=== PATIENT | male | born 1945 | race Caucasian/White ===

== ENCOUNTER → 2018-04-10 11:41 | Outpatient (CLI) | payer MEDICARE, OTHER, SELFPAY | PROVIDERS: PCP Family Medicine; Visit Provider Urology | DX: R97.20 Elevated prostate specific antigen [PSA] (principal) | CPT/HCPCS: 36415; 84153 ==

== ENCOUNTER → 2018-12-09 09:36 | Outpatient (CLI) | payer MEDICARE, OTHER, SELFPAY | PROVIDERS: Family Provider Urology; Visit Provider Urology | DX: R97.20 Elevated prostate specific antigen [PSA] (principal) | CPT/HCPCS: 36415; 84153 ==

== ENCOUNTER → 2019-07-30 11:00 | Outpatient (CLI) | payer MEDICARE, OTHER, SELFPAY ==
[2019-07-30 11:34] LABS: Creatinine Urine Random 21.6 mg/dL
[2019-07-30 11:42] LABS: Microalbumi Creatinin Ratio Ur 27.7 ug/mg CR (<30); Microalbumin Urine Random < 0.6 mg/dL (0-1.6)
== END ==
PROVIDERS: Family Provider Student in an Organized Health Care Education/Training Program; PCP Student in an Organized Health Care Education/Training Program; Visit Provider Internal Medicine Endocrinology, Diabetes & Metabolism
DX: E10.8 Type 1 diabetes mellitus with unspecified complications (principal)
CPT/HCPCS: 82043; 82570

== ENCOUNTER → 2021-01-18 09:48 | Outpatient (CLI) | payer MEDICARE, SELFPAY ==
[2021-01-18 11:35] LABS: Prostate Specific Antigen 8.07 ng/mL (0.10-4.00)
== END ==
PROVIDERS: Family Provider Student in an Organized Health Care Education/Training Program; PCP Student in an Organized Health Care Education/Training Program; Referring Provider Urology; Visit Provider Urology
DX: C61 Malignant neoplasm of prostate (principal)
CPT/HCPCS: 36415; 84153

== ENCOUNTER → 2021-06-10 09:08 | Outpatient (CLI) | payer MEDICARE, SELFPAY ==
[2021-06-10 12:02] LABS: COVID19 -Nasal RAPID Negative (Negative)
== END ==
PROVIDERS: Family Provider Student in an Organized Health Care Education/Training Program; PCP Student in an Organized Health Care Education/Training Program; Visit Provider Student in an Organized Health Care Education/Training Program
DX: Z20.822 Contact with and (suspected) exposure to COVID-19 (principal); Z01.812 Encounter for preprocedural laboratory examination
CPT/HCPCS: 87635; C9803

== ENCOUNTER 2022-03-28 13:45 | Outpatient (RCR) | payer MEDICARE, SELFPAY ==
--- NOTE | 2022-01-10 12:00 | PT.OPPOC ---
Physical, Occupational & Speech Therapy At [facility] Current Diagnoses Malignant neoplasm of prostate (01/10/22) Continuous leakage (01/10/22) Visit Care Team Role Provider Type Cornelius Mcfarland MD Family Provider Physician Primary Care Provider Specialty: Internal Medicine Address: [address] [place] [address], [facility] [address], [address] Email: [email or web address] Octavio Monreal MD Attending Provider Non-Staff Referring Provider Specialty: Medical Address: [address] [place] [address], [id number] Email: Plan Of Care PT-OP-T Assessment and Plan Start: 01/08/22 07:40 Freq: Status: Active Protocol: Document 01/10/22 13:00 AMB (Rec: 01/11/22 09:11 AMB [id number]) Physical Therapy Assessment Rehab Potential Rehabilitation Potential Good Evaluation Complexity Number of Personal Factors/Comorbidities 1-2 Number of Body Systems Impaired 1-2 Clinical Presentation at Evaluation Stable Impairments Impairments Functional Activities,Strength Goals Two Impairment Pelvic floor strength Short Term Goal (STG) Niko will contract his pelvic floor for 10 seconds with good stability (not needing to recontract multiple times). STG Duration 4 weeks [facility] Goal (LTG) Niko will contract his pelvic floor while standing for 10 seconds. LTG Duration 8 weeks One Impairment Continence Short Term Goal (STG) Niko will move from sit to stand without leaking. 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 LTG Duration 8 weeks Assessment Summary Assessment Niko attends physical therapy with urinary leaking s /p prostate surgery. He notes that he thinks he leaks the most when he is standing. He has been trying to do kegels holding for 25 seconds. With sEMG evaluation he is able to contract his pelvic floor, but the contraction was not very stable and he needed to re- engage after about 2 seconds. He will benefit from physical therapy to continue to progress his pelvic floor strength to compensate for the loss of his prostate, progress the stability of the pelvic floor hold, and further discuss behavioral aspects to the incontinence he is experiencing. Physical Therapy Plan Frequency and Duration Frequency of Treatment 1x/Week Duration of Treatment 8 weeks Plan of Care Start Date 01/10/22 Plan of Care End Date 03/07/22 Therapeutic Interventions Therapeutic Interventions Home Exercise Program,Manual Therapy,Neuromuscular Re- education,Self-Care/Home Management,Therapeutic Activities,Therapeutic Exercises Modalities Biofeedback,Electric Stimulation Next Visit Focus/Plan Next Note Type Treatment Note Next Visit Plan continue sEMG, follow up about increasing fluid Plan of Care Dates Plan of Care Start Date 01/10/22 Plan of Care End Date 03/07/22 Electronically Signed by: Ewa Liu, PT 01/11/22 0914 Please Sign and Return: I have reviewed this Plan of Care and certify that the skilled therapy services above are required to meet the patient?s needs. Physician Signature Date Printed Name and Credentials Clinical Instructor Signature Printed Name and Credentials
--- NOTE | 2022-01-10 12:00 | PT.OIE ---
Current Diagnoses Malignant neoplasm of prostate (01/10/22) Continuous leakage (01/10/22) Past Medical History (Last Reviewed 03/29/21 @ 13:43 by Sameer Starkey MD) Diabetes Prostate cancer Past Surgical History (Last Reviewed 03/29/21 @ 13:43 by Sameer Starkey MD) Status post appendectomy Status post colonoscopy Status post colonoscopy Status post knee surgery Visit Care Team Role Provider Type Cornelius Mcfarland MD Family Provider Physician Primary Care Provider Specialty: Internal Medicine Address: [address] [place] [address], [address], [address] Email: [email or web address] Octavio Monreal MD Attending Provider Non-Staff Referring Provider Specialty: Medical Address: [address] [place] [address], [id number] Email: Physical Therapy Initial Evaluation PT-OP-A Visit Information Start: 01/08/22 07:40 Freq: Status: Active Protocol: Document 01/10/22 13:00 AMB (Rec: 01/10/22 13:38 AMB [id number]) Out-Patient Physical Therapy Visit Information Visit Information Visit Type Initial Evaluation Visit Start Time 13:00 Visit Stop Time 13:45 Total Visit Minutes 45 Visit Number 1 PT-OP-B Current Condition Start: 01/08/22 07:40 Freq: Status: Active Protocol: Document 01/10/22 13:00 AMB (Rec: 01/10/22 13:38 AMB [id number]) Current Condition History of Current Condition Onset Date June 2021 Current Complaints Urinary leaking History of Current Condition Had prostate removed for prostate cancer in June, symptoms have been improving but continues to leak, especially when standing/ upright. Leaking enough to fill 3 pads in 24 hour period, doesn't leak much at night. Doesn't void much during the day, does void at night 2-3x. Stopped drinking coffee, reports drinks about 24-32oz of water per day. Was previously voiding more during the day before surgery. Denies cough/constipation. Current Functional Impairments (Reported) Functional Limitations- ADL's Leaking with standing/walking Personal Factors Other Personal Factors That May Effect DMI Therapy/Recovery PT-OP-C Subjective Start: 01/08/22 07:40 Freq: Status: Active Protocol: Document 01/10/22 13:00 AMB (Rec: 01/11/22 09:11 AMB [id number]) Patient Questionnaires Pelvic Pain and Urgency/Frequency Patient Symptom Scale Pelvic Pain Score 2 PT-OP-I Pelvic Floor Start: 01/08/22 07:40 Freq: Status: Active Protocol: Document 01/10/22 13:41 AMB (Rec: 01/10/22 13:44 AMB [id number]) Pelvic Floor Assessment Urine Pelvic Floor Surgery Yes: Prostate Leakage Size Medium Leakage Cause Exercise,Lifting Other Leakage Causes standing Nocturia 2 Pads Used In 24 Hours 3 Urine Pad Type Depends Bowel Bowel Surgery No SEMG (uV) Baseline 4 Quick Contraction 45 10 Second Contraction 26 Recruitment Pattern Good Relaxation Good Holding Fair Stability of Hold Poor/Slow SEMG Stability of Rest Good Comments Pelvic Floor Comments cued to breathe, assessed in sidelying PT-OP-T Assessment and Plan Start: 01/08/22 07:40 Freq: Status: Active Protocol: Document 01/10/22 13:00 AMB (Rec: 01/11/22 09:11 AMB [id number]) Physical Therapy Assessment Rehab Potential Rehabilitation Potential Good Evaluation Complexity Number of Personal Factors/Comorbidities 1-2 Number of Body Systems Impaired 1-2 Clinical Presentation at Evaluation Stable Impairments Impairments Functional Activities,Strength Goals Two Impairment Pelvic floor strength Short Term Goal (STG) Niko will contract his pelvic floor for 10 seconds with good stability (not needing to recontract multiple times). STG Duration 4 weeks Business And Financial Counsel Goal (LTG) Niko will contract his pelvic floor while standing for 10 seconds. LTG Duration 8 weeks One Impairment Continence Short Term Goal (STG) Niko will move from sit to stand without leaking. 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 LTG Duration 8 weeks Assessment Summary Assessment Niko attends physical therapy with urinary leaking s /p prostate surgery. He notes that he thinks he leaks the most when he is standing. He has been trying to do kegels holding for 25 seconds. With sEMG evaluation he is able to contract his pelvic floor, but the contraction was not very stable and he needed to re- engage after about 2 seconds. He will benefit from physical therapy to continue to progress his pelvic floor strength to compensate for the loss of his prostate, progress the stability of the pelvic floor hold, and further discuss behavioral aspects to the incontinence he is experiencing. Physical Therapy Plan Frequency and Duration Frequency of Treatment 1x/Week Duration of Treatment 8 weeks Plan of Care Start Date 01/10/22 Plan of Care End Date 03/07/22 Therapeutic Interventions Therapeutic Interventions Home Exercise Program,Manual Therapy,Neuromuscular Re- education,Self-Care/Home Management,Therapeutic Activities,Therapeutic Exercises Modalities Biofeedback,Electric Stimulation Next Visit Focus/Plan Next Note Type Treatment Note Next Visit Plan continue sEMG, follow up about increasing fluid
--- NOTE | 2022-01-17 09:57 | PT.OTN ---
Current Diagnoses Malignant neoplasm of prostate (01/17/22) Continuous leakage (01/17/22) Physical Therapy Treatment Note PT-OP-A Visit Information Start: 01/08/22 07:40 Freq: Status: Active Protocol: Document 01/17/22 14:26 AMB (Rec: 01/17/22 14:56 AMB [id number]) Out-Patient Physical Therapy Visit Information Visit Information Visit Type Treatment Note Visit Start Time 14:30 Visit Stop Time 15:15 Total Visit Minutes 45 Visit Number 2 PT-OP-B Current Condition Start: 01/08/22 07:40 Freq: Status: Active Protocol: Document 01/10/22 13:00 AMB (Rec: 01/10/22 13:38 AMB [id number]) Current Condition History of Current Condition Onset Date June 2021 Current Complaints Urinary leaking History of Current Condition Had prostate removed for prostate cancer in June, symptoms have been improving but continues to leak, especially when standing/ upright. Leaking enough to fill 3 pads in 24 hour period, doesn't leak much at night. Doesn't void much during the day, does void at night 2-3x. Stopped drinking coffee, reports drinks about 24-32oz of water per day. Was previously voiding more during the day before surgery. Denies cough/constipation. Current Functional Impairments (Reported) Functional Limitations- ADL's Leaking with standing/walking Personal Factors Other Personal Factors That May Effect DMI Therapy/Recovery PT-OP-C Subjective Start: 01/08/22 07:40 Freq: Status: Active Protocol: Document 01/17/22 14:26 AMB (Rec: 01/17/22 14:56 AMB [id number]) OP-PT Subjective Patient Comments Patient Comments Drinking more fluid, going to the bathroom during the day more. Nighttime voids are fine, not increasing. PT-OP-I Pelvic Floor Start: 01/08/22 07:40 Freq: Status: Active Protocol: Document 01/10/22 13:41 AMB (Rec: 01/10/22 13:44 AMB [id number]) Pelvic Floor Assessment Urine Pelvic Floor Surgery Yes: Prostate Leakage Size Medium Leakage Cause Exercise,Lifting Other Leakage Causes standing Nocturia 2 Pads Used In 24 Hours 3 Urine Pad Type Depends Bowel Bowel Surgery No SEMG (uV) Baseline 4 Quick Contraction 45 10 Second Contraction 26 Recruitment Pattern Good Relaxation Good Holding Fair Stability of Hold Poor/Slow SEMG Stability of Rest Good Comments Pelvic Floor Comments cued to breathe, assessed in sidelying PT-OP-Q Treatments Start: 01/08/22 07:40 Freq: Status: Active Protocol: Document 01/17/22 14:30 AMB (Rec: 01/19/22 09:57 AMB [id number]) Therapeutic Exercises Sitting Exercises 1 Sitting Exercise Name sit to stand/ stand to sit Comments with PF control, working Neuro Re-Education Treatment Other Activities sEMG Comments see assessment section, pt showing improved avg and max hold, but fatigues after about 5-10 reps PT-OP-T Assessment and Plan Start: 01/08/22 07:40 Freq: Status: Active Protocol: Document 01/17/22 14:26 AMB (Rec: 01/17/22 14:56 AMB [id number]) Physical Therapy Assessment Goals Two Impairment Pelvic floor strength Short Term Goal (STG) Niko will contract his pelvic floor for 10 seconds with good stability (not needing to recontract multiple times). STG Duration 4 weeks Long-Term Goal (LTG) Niko will contract his pelvic floor while standing for 10 seconds. LTG Duration 8 weeks One Impairment Continence Short Term Goal (STG) Niko will move from sit to stand without leaking. 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 LTG Duration 8 weeks Assessment Summary Assessment Max 66, 30 avg for long holds. Better today than at eval. Pt does continue to fatigue after a few reps, but stability of hold was better. Pt has been good with drinking more water. Physical Therapy Plan Next Visit Focus/Plan Next Note Type Treatment Note Next Visit Plan Continue sEMG
--- NOTE | 2022-01-31 14:41 | PT.OTN ---
Current Diagnoses Malignant neoplasm of prostate (01/31/22) Continuous leakage (01/31/22) Physical Therapy Treatment Note PT-OP-A Visit Information Start: 01/08/22 07:40 Freq: Status: Active Protocol: Document 01/31/22 13:45 AMB (Rec: 01/31/22 14:41 AMB [id number]) Out-Patient Physical Therapy Visit Information Visit Information Visit Type Treatment Note Visit Start Time 13:45 Visit Stop Time 14:30 Total Visit Minutes 45 Visit Number 3 PT-OP-B Current Condition Start: 01/08/22 07:40 Freq: Status: Active Protocol: Document 01/10/22 13:00 AMB (Rec: 01/10/22 13:38 AMB [id number]) Current Condition History of Current Condition Onset Date June 2021 Current Complaints Urinary leaking History of Current Condition Had prostate removed for prostate cancer in June, symptoms have been improving but continues to leak, especially when standing/ upright. Leaking enough to fill 3 pads in 24 hour period, doesn't leak much at night. Doesn't void much during the day, does void at night 2-3x. Stopped drinking coffee, reports drinks about 24-32oz of water per day. Was previously voiding more during the day before surgery. Denies cough/constipation. Current Functional Impairments (Reported) Functional Limitations- ADL's Leaking with standing/walking Personal Factors Other Personal Factors That May Effect DMI Therapy/Recovery PT-OP-C Subjective Start: 01/08/22 07:40 Freq: Status: Active Protocol: Document 01/31/22 13:45 AMB (Rec: 01/31/22 14:41 AMB [id number]) OP-PT Subjective Patient Comments Patient Comments Pt noticing fewer leaks, continuing to use about 3 pads /day. PT-OP-I Pelvic Floor Start: 01/08/22 07:40 Freq: Status: Active Protocol: Document 01/10/22 13:41 AMB (Rec: 01/10/22 13:44 AMB [id number]) Pelvic Floor Assessment Urine Pelvic Floor Surgery Yes: Prostate Leakage Size Medium Leakage Cause Exercise,Lifting Other Leakage Causes standing Nocturia 2 Pads Used In 24 Hours 3 Urine Pad Type Depends Bowel Bowel Surgery No SEMG (uV) Baseline 4 Quick Contraction 45 10 Second Contraction 26 Recruitment Pattern Good Relaxation Good Holding Fair Stability of Hold Poor/Slow SEMG Stability of Rest Good Comments Pelvic Floor Comments cued to breathe, assessed in sidelying PT-OP-Q Treatments Start: 01/08/22 07:40 Freq: Status: Active Protocol: Document 01/31/22 13:45 AMB (Rec: 01/31/22 14:41 AMB [id number]) Therapeutic Exercises Sitting Exercises 2 Sitting Exercise Name PF with weight lifting (biceps curls) 1 Sitting Exercise Name sit to stand/ stand to sit Comments with PF control, working Neuro Re-Education Treatment Other Activities sEMG Comments see assessment section, pt showing improved avg and max hold, but fatigues after about 5-10 reps PT-OP-T Assessment and Plan Start: 01/08/22 07:40 Freq: Status: Active Protocol: Document 01/31/22 13:45 AMB (Rec: 01/31/22 14:41 AMB [id number]) Physical Therapy Assessment Assessment Summary Assessment Avg 36, max 87. For long holds. Quick flicks avg 22, max 56 (did second). Pt does show decreased numbers after a few repetitions. Physical Therapy Plan Next Visit Focus/Plan Next Note Type Treatment Note Next Visit Plan continue sEMG
--- NOTE | 2022-02-28 14:57 | PT.OTN ---
Current Diagnoses Malignant neoplasm of prostate (02/28/22) Continuous leakage (02/28/22) Physical Therapy Treatment Note PT-OP-A Visit Information Start: 01/08/22 07:40 Freq: Status: Active Protocol: Document 02/28/22 13:54 AMB (Rec: 02/28/22 14:33 AMB [id number]) Out-Patient Physical Therapy Visit Information Visit Information Visit Type Treatment Note Visit Start Time 13:45 Visit Stop Time 14:30 Total Visit Minutes 45 Visit Number 4 PT-OP-B Current Condition Start: 01/08/22 07:40 Freq: Status: Active Protocol: Document 01/10/22 13:00 AMB (Rec: 01/10/22 13:38 AMB [id number]) Current Condition History of Current Condition Onset Date June 2021 Current Complaints Urinary leaking History of Current Condition Had prostate removed for prostate cancer in June, symptoms have been improving but continues to leak, especially when standing/ upright. Leaking enough to fill 3 pads in 24 hour period, doesn't leak much at night. Doesn't void much during the day, does void at night 2-3x. Stopped drinking coffee, reports drinks about 24-32oz of water per day. Was previously voiding more during the day before surgery. Denies cough/constipation. Current Functional Impairments (Reported) Functional Limitations- ADL's Leaking with standing/walking Personal Factors Other Personal Factors That May Effect DMI Therapy/Recovery PT-OP-C Subjective Start: 01/08/22 07:40 Freq: Status: Active Protocol: Document 02/28/22 13:54 AMB (Rec: 02/28/22 14:33 AMB [id number]) OP-PT Subjective Patient Comments Patient Comments Pt noticing improvement, but afternoon when standing continues to note leaking, michael with mowing lawn or moving from sit to stand PT-OP-I Pelvic Floor Start: 01/08/22 07:40 Freq: Status: Active Protocol: Document 01/10/22 13:41 AMB (Rec: 01/10/22 13:44 AMB [id number]) Pelvic Floor Assessment Urine Pelvic Floor Surgery Yes: Prostate Leakage Size Medium Leakage Cause Exercise,Lifting Other Leakage Causes standing Nocturia 2 Pads Used In 24 Hours 3 Urine Pad Type Depends Bowel Bowel Surgery No SEMG (uV) Baseline 4 Quick Contraction 45 10 Second Contraction 26 Recruitment Pattern Good Relaxation Good Holding Fair Stability of Hold Poor/Slow SEMG Stability of Rest Good Comments Pelvic Floor Comments cued to breathe, assessed in sidelying PT-OP-Q Treatments Start: 01/08/22 07:40 Freq: Status: Active Protocol: Document 02/28/22 13:45 AMB (Rec: 03/02/22 14:55 AMB [id number]) Therapeutic Exercises Sitting Exercises 1 Sitting Exercise Name sit to stand/ stand to sit Comments with PF control, working Neuro Re-Education Treatment Other Activities sEMG Comments see assessment section, pt showing improved avg and max hold, less fatigue today. PT-OP-T Assessment and Plan Start: 01/08/22 07:40 Freq: Status: Active Protocol: Document 02/28/22 13:54 AMB (Rec: 02/28/22 14:33 AMB [id number]) Physical Therapy Assessment Goals Two Impairment Pelvic floor strength Short Term Goal (STG) Niko will contract his pelvic floor for 10 seconds with good stability (not needing to recontract multiple times). STG Duration 4 weeks Correction Goal (LTG) Niko will contract his pelvic floor while standing for 10 seconds. LTG Duration 8 weeks One Impairment Continence Short Term Goal (STG) Niko will move from sit to stand without leaking. 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 LTG Duration 8 weeks Assessment Summary Assessment Avg 42 max 90. for 10 second holds. Quick flicks max 92, avg 30.8. Overall Niko's strength continues to improve, however he continues to have sx especially when moving from sit to stand, encouraged he really think about corona during that time. Physical Therapy Plan Next Visit Focus/Plan Next Note Type Treatment Note Next Visit Plan continue sEMG
--- NOTE | 2022-03-07 16:02 | PT.OTN ---
Current Diagnoses Malignant neoplasm of prostate (03/07/22) Continuous leakage (03/07/22) Physical Therapy Treatment Note PT-OP-A Visit Information Start: 01/08/22 07:40 Freq: Status: Active Protocol: Document 03/07/22 13:01 AMB (Rec: 03/07/22 14:31 AMB [id number]) Out-Patient Physical Therapy Visit Information Visit Information Visit Type Treatment Note Visit Start Time 13:00 Visit Stop Time 13:45 Total Visit Minutes 45 Visit Number 5 PT-OP-B Current Condition Start: 01/08/22 07:40 Freq: Status: Active Protocol: Document 01/10/22 13:00 AMB (Rec: 01/10/22 13:38 AMB [id number]) Current Condition History of Current Condition Onset Date June 2021 Current Complaints Urinary leaking History of Current Condition Had prostate removed for prostate cancer in June, symptoms have been improving but continues to leak, especially when standing/ upright. Leaking enough to fill 3 pads in 24 hour period, doesn't leak much at night. Doesn't void much during the day, does void at night 2-3x. Stopped drinking coffee, reports drinks about 24-32oz of water per day. Was previously voiding more during the day before surgery. Denies cough/constipation. Current Functional Impairments (Reported) Functional Limitations- ADL's Leaking with standing/walking Personal Factors Other Personal Factors That May Effect DMI Therapy/Recovery PT-OP-C Subjective Start: 01/08/22 07:40 Freq: Status: Active Protocol: Document 03/07/22 13:01 AMB (Rec: 03/07/22 14:31 AMB [id number]) OP-PT Subjective Patient Comments Patient Comments Niko reports he has been mowing the lawn yesterday for 4 hours. PT-OP-I Pelvic Floor Start: 01/08/22 07:40 Freq: Status: Active Protocol: Document 01/10/22 13:41 AMB (Rec: 01/10/22 13:44 AMB [id number]) Pelvic Floor Assessment Urine Pelvic Floor Surgery Yes: Prostate Leakage Size Medium Leakage Cause Exercise,Lifting Other Leakage Causes standing Nocturia 2 Pads Used In 24 Hours 3 Urine Pad Type Depends Bowel Bowel Surgery No SEMG (uV) Baseline 4 Quick Contraction 45 10 Second Contraction 26 Recruitment Pattern Good Relaxation Good Holding Fair Stability of Hold Poor/Slow SEMG Stability of Rest Good Comments Pelvic Floor Comments cued to breathe, assessed in sidelying PT-OP-Q Treatments Start: 01/08/22 07:40 Freq: Status: Active Protocol: Document 03/07/22 13:01 AMB (Rec: 03/07/22 14:31 AMB [id number]) Therapeutic Exercises Supine Exercises 1 Supine Exercise Name bench press with long hold Reps/Minutes 10 Comments cued breath Sitting Exercises 3 Sitting Exercise Name biceps curls with PF control Comments cues for breathing 1 Sitting Exercise Name sit to stand/ stand to sit Comments with PF control, working PT-OP-T Assessment and Plan Start: 01/08/22 07:40 Freq: Status: Active Protocol: Document 03/07/22 13:01 AMB (Rec: 03/07/22 14:31 AMB [id number]) Physical Therapy Assessment Goals Two Impairment Pelvic floor strength Short Term Goal (STG) Niko will contract his pelvic floor for 10 seconds with good stability (not needing to recontract multiple times). STG Duration 4 weeks [facility] Goal (LTG) Niko will contract his pelvic floor while standing for 10 seconds. LTG Duration 8 weeks One Impairment Continence Short Term Goal (STG) Niko will move from sit to stand without leaking. 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 LTG Duration 8 weeks Assessment Summary Assessment Niko benefitted from specific instruction in how to engage pelvic floor with exercise today. Physical Therapy Plan Next Visit Focus/Plan Next Note Type Treatment Note Next Visit Plan continue sEMG
--- NOTE | 2022-03-28 16:30 | PT.OTN ---
Current Diagnoses Malignant neoplasm of prostate (03/28/22) Continuous leakage (03/28/22) Physical Therapy Treatment Note PT-OP-A Visit Information Start: 01/08/22 07:40 Freq: Status: Active Protocol: Document 03/28/22 13:45 AMB (Rec: 03/28/22 14:25 AMB [id number]) Out-Patient Physical Therapy Visit Information Visit Information Visit Type Treatment Note Visit Start Time 13:00 Visit Stop Time 13:45 Total Visit Minutes 45 Visit Number 6 PT-OP-B Current Condition Start: 01/08/22 07:40 Freq: Status: Active Protocol: Document 01/10/22 13:00 AMB (Rec: 01/10/22 13:38 AMB [id number]) Current Condition History of Current Condition Onset Date June 2021 Current Complaints Urinary leaking History of Current Condition Had prostate removed for prostate cancer in June, symptoms have been improving but continues to leak, especially when standing/ upright. Leaking enough to fill 3 pads in 24 hour period, doesn't leak much at night. Doesn't void much during the day, does void at night 2-3x. Stopped drinking coffee, reports drinks about 24-32oz of water per day. Was previously voiding more during the day before surgery. Denies cough/constipation. Current Functional Impairments (Reported) Functional Limitations- ADL's Leaking with standing/walking Personal Factors Other Personal Factors That May Effect DMI Therapy/Recovery PT-OP-C Subjective Start: 01/08/22 07:40 Freq: Status: Active Protocol: Document 03/28/22 13:45 AMB (Rec: 03/29/22 16:27 AMB [id number]) OP-PT Subjective Patient Comments Patient Comments Pt thinks his symptoms are less severe, still leaks especially when he has been mowing the lawn for a few hours, but overall less leaking. PT-OP-I Pelvic Floor Start: 01/08/22 07:40 Freq: Status: Active Protocol: Document 01/10/22 13:41 AMB (Rec: 01/10/22 13:44 AMB [id number]) Pelvic Floor Assessment Urine Pelvic Floor Surgery Yes: Prostate Leakage Size Medium Leakage Cause Exercise,Lifting Other Leakage Causes standing Nocturia 2 Pads Used In 24 Hours 3 Urine Pad Type Depends Bowel Bowel Surgery No SEMG (uV) Baseline 4 Quick Contraction 45 10 Second Contraction 26 Recruitment Pattern Good Relaxation Good Holding Fair Stability of Hold Poor/Slow SEMG Stability of Rest Good Comments Pelvic Floor Comments cued to breathe, assessed in sidelying PT-OP-Q Treatments Start: 01/08/22 07:40 Freq: Status: Active Protocol: Document 03/28/22 13:45 AMB (Rec: 03/29/22 16:27 AMB [id number]) Neuro Re-Education Treatment Other Activities sEMG Comments see assessment section, pt had lower numbers today than last session ,was fatigued from lack of sleep. PT-OP-T Assessment and Plan Start: 01/08/22 07:40 Freq: Status: Active Protocol: Document 03/28/22 13:45 AMB (Rec: 03/28/22 14:25 AMB [id number]) Physical Therapy Assessment Goals Two Impairment Pelvic floor strength Short Term Goal (STG) Niko will contract his pelvic floor for 10 seconds with good stability (not needing to recontract multiple times). STG Duration 4 weeks Usp Goal (LTG) Niko will contract his pelvic floor while standing for 10 seconds. LTG Duration 8 weeks One Impairment Continence Short Term Goal (STG) Niko will move from sit to stand without leaking. STG Duration 4 weeks Usp Goal (LTG) Niko will stand to cook vacuum kettle for 20 minutes without leaking urine. LTG Duration 8 weeks Assessment Summary Assessment Baseline 5. 10 sec hold max 70; avg 32. Max 53, avg 28 with quick flicks. Niko overall has shown good reduction in his symptoms, he is strong in his pelvic floor muscles, they do fatigue with extended activity like hours of mowing the lawn, but he is managing and should be able to continue with his HEP independently at this point. Physical Therapy Plan Frequency and Duration Frequency of Treatment 1x/Week Duration of Treatment 4 weeks Plan of Care Start Date 03/07/22 Plan of Care End Date 04/04/22 Therapeutic Interventions Therapeutic Interventions Home Exercise Program,Manual Therapy,Neuromuscular Re- education,Self-Care/Home Management,Therapeutic Activities,Therapeutic Exercises Modalities Biofeedback,Electric Stimulation Discharge Physical Therapy Discharge Reasons Plateau in Progress
--- NOTE | 2022-03-29 16:30 | PT.OPPOC ---
Physical, Occupational & Speech Therapy At [facility] Current Diagnoses Malignant neoplasm of prostate (03/28/22) Continuous leakage (03/28/22) Visit Care Team Role Provider Type Cornelius Mcfarland MD Family Provider Physician Primary Care Provider Specialty: Internal Medicine Address: [address] [place] [address], [address], [address] Email: [email or web address] Octavio Monreal MD Attending Provider Non-Staff Referring Provider Specialty: Medical Address: [address] [place] [address], [id number] Email: Plan Of Care PT-OP-T Assessment and Plan Start: 01/08/22 07:40 Freq: Status: Active Protocol: Document 03/28/22 13:45 AMB (Rec: 03/28/22 14:25 AMB [id number]) Physical Therapy Assessment Goals Two Impairment Pelvic floor strength Short Term Goal (STG) Niko will contract his pelvic floor for 10 seconds with good stability (not needing to recontract multiple times). STG Duration 4 weeks Shelter Goal (LTG) Niko will contract his pelvic floor while standing for 10 seconds. LTG Duration 8 weeks One Impairment Continence Short Term Goal (STG) Niko will move from sit to stand without leaking. 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 LTG Duration 8 weeks Assessment Summary Assessment Baseline 5. 10 sec hold max 70; avg 32. Max 53, avg 28 with quick flicks. Niko overall has shown good reduction in his symptoms, he is strong in his pelvic floor muscles, they do fatigue with extended activity like hours of mowing the lawn, but he is managing and should be able to continue with his HEP independently at this point. Physical Therapy Plan Frequency and Duration Frequency of Treatment 1x/Week Duration of Treatment 4 weeks Plan of Care Start Date 03/07/22 Plan of Care End Date 04/04/22 Therapeutic Interventions Therapeutic Interventions Home Exercise Program,Manual Therapy,Neuromuscular Re- education,Self-Care/Home Management,Therapeutic Activities,Therapeutic Exercises Modalities Biofeedback,Electric Stimulation Discharge Physical Therapy Discharge Reasons Plateau in Progress Plan of Care Dates Plan of Care Start Date 03/07/22 Plan of Care End Date 04/04/22 Electronically Signed by: Ewa Liu, PT 03/29/22 8202 If you are in agreement with this Plan of Care, please return a signed and dated copy. I have reviewed this Plan of Care and certify that the skilled therapy services above are required to meet the patient?s needs. Physician Signature Date Printed Name and Credentials Clinical Instructor Signature Printed Name and Credentials
--- NOTE | 2022-03-29 16:30 | PT.OPDS ---
Current Diagnoses Malignant neoplasm of prostate (03/28/22) Continuous leakage (03/28/22) Visit Care Team Role Provider Type Cornelius Mcfarland MD Family Provider Physician Primary Care Provider Specialty: Internal Medicine Address: [address] [place] [address], [address], [address] Email: [email or web address] Octavio Monreal MD Attending Provider Non-Staff Referring Provider Specialty: Medical Address: [address] [place] [address], [id number] Email: Visit Number Visit Number 6 Discharge Summary PT-OP-B Current Condition Start: 01/08/22 07:40 Freq: Status: Active Protocol: Document 01/10/22 13:00 AMB (Rec: 01/10/22 13:38 AMB [id number]) Current Condition History of Current Condition Onset Date June 2021 Current Complaints Urinary leaking History of Current Condition Had prostate removed for prostate cancer in June, symptoms have been improving but continues to leak, especially when standing/ upright. Leaking enough to fill 3 pads in 24 hour period, doesn't leak much at night. Doesn't void much during the day, does void at night 2-3x. Stopped drinking coffee, reports drinks about 24-32oz of water per day. Was previously voiding more during the day before surgery. Denies cough/constipation. Current Functional Impairments (Reported) Functional Limitations- ADL's Leaking with standing/walking Personal Factors Other Personal Factors That May Effect DMI Therapy/Recovery PT-OP-C Subjective Start: 01/08/22 07:40 Freq: Status: Active Protocol: Document 03/28/22 13:45 AMB (Rec: 03/29/22 16:27 AMB [id number]) OP-PT Subjective Patient Comments Patient Comments Pt thinks his symptoms are less severe, still leaks especially when he has been mowing the lawn for a few hours, but overall less leaking. PT-OP-I Pelvic Floor Start: 01/08/22 07:40 Freq: Status: Active Protocol: Document 01/10/22 13:41 AMB (Rec: 01/10/22 13:44 AMB [id number]) Pelvic Floor Assessment Urine Pelvic Floor Surgery Yes: Prostate Leakage Size Medium Leakage Cause Exercise,Lifting Other Leakage Causes standing Nocturia 2 Pads Used In 24 Hours 3 Urine Pad Type Depends Bowel Bowel Surgery No SEMG (uV) Baseline 4 Quick Contraction 45 10 Second Contraction 26 Recruitment Pattern Good Relaxation Good Holding Fair Stability of Hold Poor/Slow SEMG Stability of Rest Good Comments Pelvic Floor Comments cued to breathe, assessed in sidelying PT-OP-T Assessment and Plan Start: 01/08/22 07:40 Freq: Status: Active Protocol: Document 03/28/22 13:45 AMB (Rec: 03/28/22 14:25 AMB [id number]) Physical Therapy Assessment Goals Two Impairment Pelvic floor strength Short Term Goal (STG) Niko will contract his pelvic floor for 10 seconds with good stability (not needing to recontract multiple times). STG Duration 4 weeks Vp Business Development Goal (LTG) Niko will contract his pelvic floor while standing for 10 seconds. LTG Duration 8 weeks One Impairment Continence Short Term Goal (STG) Niko will move from sit to stand without leaking. 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 LTG Duration 8 weeks Assessment Summary Assessment Baseline 5. 10 sec hold max 70; avg 32. Max 53, avg 28 with quick flicks. Niko overall has shown good reduction in his symptoms, he is strong in his pelvic floor muscles, they do fatigue with extended activity like hours of mowing the lawn, but he is managing and should be able to continue with his HEP independently at this point. Physical Therapy Plan Frequency and Duration Frequency of Treatment 1x/Week Duration of Treatment 4 weeks Plan of Care Start Date 03/07/22 Plan of Care End Date 04/04/22 Therapeutic Interventions Therapeutic Interventions Home Exercise Program,Manual Therapy,Neuromuscular Re- education,Self-Care/Home Management,Therapeutic Activities,Therapeutic Exercises Modalities Biofeedback,Electric Stimulation Discharge Physical Therapy Discharge Reasons Plateau in Progress
== END 2022-03-30 10:43 ==
LOC: PHYS 13:45
PROVIDERS: Family Provider Student in an Organized Health Care Education/Training Program; PCP Student in an Organized Health Care Education/Training Program; Referring Provider Urology; Visit Provider Urology
DX: C61 Malignant neoplasm of prostate (principal); N39.45 Continuous leakage
CPT/HCPCS: 97110; 97112; 97161

== ENCOUNTER 2022-05-25 10:16 | Day surgery (SDC) | payer MEDICARE, SELFPAY ==
[2022-05-25] VITALS (8 sets, daily range): BP systolic 101–149; BP diastolic 56–82; PULSE 61–85; RESP 15–116; TEMP 36.1–36.7; O2SAT 97–100; BMI 23.6
[2022-05-25] MEDS: LACTATED RINGERS 1,000 ML 42 ML IV (10:35)
--- NOTE | 2022-05-25 11:15 | PM.HP.1 ---
History of Present Illness History of Present Illness Date Patient Seen: 05/25/22 Time Patient Seen: 11:20 Chief complaint: SCREENING COLONOSCOPY Narrative: last scope over 10 years. His brother had colon cancer (>60 yo age). No problems Patient History Medical History Diabetes Obstructive sleep apnea (adult) (pediatric) Prostate cancer Surgical History Status post appendectomy Status post colonoscopy Status post colonoscopy Status post knee surgery Family & Social History Social History: household members spouse Tobacco & Substance use: Smoking Status Never smoker alcohol intake frequency holiday/special occasion Substance Use Type does not use Meds Home Medications and Allergies Home Medications Medication Instructions Recorded Confirmed Type BIOTIN/BORON/CA/CHLORIDE/CR/ 1 tab PO Q DAY ##0 04/28/12 05/17/22 History (#HERNAN OSORIO) Glucose: Test Strips 0 str 5XD ##500 01/03/18 05/17/22 Rx aspirin 81 mg tablet,delayed 81 mg PO DAILY 06/15/20 05/17/22 History release dexcom g6 sensor #1 ea 06/15/20 05/17/22 History glucagon (human recombinant) 1 mg 1 mg SUBCUT Q20M PRN 06/15/20 05/17/22 History solution for injection insulin glargine 100 unit/mL 18 unit SUBCUT BEDTIME 06/15/20 05/17/22 History subcutaneous solution insulin subcutaneous pump humalog SUBCUT 06/15/20 05/17/22 History insulin syr/ndl U100 half kim 0.5 #100 ea 06/15/20 05/17/22 History mL 29 gauge x 1/2 ketoconazole 2 % topical cream 1 applictn topical DAILY 06/15/20 05/17/22 History rosuvastatin 20 mg tablet 20 mg PO DAILY 06/15/20 05/17/22 History sildenafil 100 mg tablet 100 mg PO DAILY PRN 06/15/20 05/17/22 History timolol 0.25 % eye drops EYE-BOTH 06/15/20 05/17/22 History CHOLECALCIFEROL (VITAMIN D) 1,000 mcg PO Q DAY ##0 03/29/21 05/17/22 History guaifenesin 600 mg tablet, 600 mg PO Q12H PRN 03/29/21 05/17/22 History extended release 12 hr (Mucinex) ipratropium bromide 42 mcg (0.06 2 spray intranasal TID 03/29/21 05/17/22 History %) nasal spray montelukast 10 mg tablet 10 mg PO BEDTIME 03/29/21 05/17/22 History hydrochlorothiazide PO 05/17/22 History Allergies Allergy/AdvReac Type Severity Reaction Status Date / Time No Known Drug Allergies Allergy Verified 05/25/22 10:41 Review of Systems Review of Systems ROS: Yes All systems reviewed with the patient and are negative except as otherwise documented Exam Vital Signs (past 8 hours): - 05/25/22 10:46 Temperature 97.0 F L Pulse Rate 85 Respiratory Rate 16 Blood Pressure 149/82 H Pulse Oximetry 98 Oxygen Delivery Method Room Air Oxygen Delivery Method Room Air Const General: cooperative and comfortable HENMT Head: normal to inspection and atraumatic Eyes General: appearance normal, both eyes and all related structures Sclera: sclerae normal Neck Neck: trachea midline Chest Chest: normal inspection of the chest Resp Effort & Inspection: normal respiratory effort and able to speak in complete sentences Auscultation: clear to auscultation bilaterally Cardio Rate: regular rate Rhythm: regular rhythm GI Inspection: normal to inspection Palpation: soft Skin General: atrophy and dry skin Neuro General: patient alert, patient awake and patient oriented x3 Cognition: normal cognition Extrem General: no pedal edema Psych Appearance: grossly normal Mental Status: mental status grossly normal Judgment: judgment good Assessment & Plan Assessment & Plan narrative: colon cancer screening using colonoscopy and moderate sedation COVID-19 COVID-19 status: Negative Time Spent With Patient Time with patient: less than 30 minutes Critical Care time: I spent a total of [] minutes of critical care time on this patient's care today; this time is exclusive of procedural time.
--- NOTE | 2022-05-25 11:23 | PM.OP.COLON ---
Operative Date/Time/Diagnoses Date of procedure: 05/25/22 Time of procedure: 11:23 Pre-op diagnosis: colon cancer screening Post-op diagnosis: same Procedure & Clinicians Study performed: colonoscopy with moderate sedation Same procedure as scheduled: Yes Indications: screen for colon cancer Surgeon: Inge Lucero Procedure Notes SCOAP/Timeout: done Procedure in detail: Preop diagnosis: Colon cancer screening Postop diagnosis: Same Operative procedure: Colonoscopy with moderate sedation Surgeon: Nicole Lucero MD Anesthetic: Versed 3 mg fentanyl 50 mcg Findings: Normal colonoscopy. Decreased rectal tone. Scant diverticular disease is small in nature. Procedure: Patient placed in lateral position. Rectal exam performed showing decreased tone no masses. Colonoscope inserted into the rectum and advanced to ileocecal valve with minimal difficulty. Insufflation extraction of scope and the above findings. Impression: No polyps identified. Scant scattered diverticuli small in size noted. Plan: Repeat colonoscopy in 10 years unless otherwise indicated a change in clinical condition Scope withdrawal time: 18 Findings: divertiulosis Specimen(s): none sent Complications: none Post-procedure Recommendations: Colonoscopy in 10 years Follow up: as needed Disposition: PACU
[2022-05-25] MEDS: fentaNYL 250 MCG/5 ML INJ 50 MCG IV (11:42)
[2022-05-25] MEDS: MIDAZOLAM 5 MG/5 ML VIAL 3 MG IV (11:44)
--- NOTE | 2022-05-25 12:40 | SUR.PHASEII ---
Pt A&Ox4, denies any distress and ready to discharge home. Discharge instructions reviewed and time allowed for questions. IV DC'd intact, no issues noted. Pt left unit via w/c with all personal belongings to the ER exit where spouse will transport pt home.
== END 2022-05-25 12:45 | disposition home or self-care (01) ==
PROVIDERS: Family Provider Student in an Organized Health Care Education/Training Program; PCP Student in an Organized Health Care Education/Training Program; Referring Provider Surgery; Visit Provider Surgery
PROC: 0DJD8ZZ Inspection of Lower Intestinal Tract, Via Natural or Artificial Opening Endoscopic (ICD-10-PCS; CPT 45378; principal; 2022-05-25 11:30)
DX: Z12.11 Encounter for screening for malignant neoplasm of colon (principal); K57.30 Diverticulosis of large intestine without perforation or abscess without bleeding; Z80.0 Family history of malignant neoplasm of digestive organs; E11.9 Type 2 diabetes mellitus without complications; G47.33 Obstructive sleep apnea (adult) (pediatric); Z85.46 Personal history of malignant neoplasm of prostate; Z79.4 Long term (current) use of insulin
CPT/HCPCS: G0105; 82962; 99152; J2250; J3010

== ENCOUNTER → 2022-06-21 10:08 | Outpatient (CLI) | payer MEDICARE, SELFPAY ==
--- NOTE | 2022-06-29 18:02 | DIAB.MNT ---
Initial Diabetes Medical Nutrition Therapy Assessment Name: Niko Gomes Date: 06/21/22 Time: 11a-12p Dx: Type I Diabetes Niko presents for initial visit. States he has had T1DM for 41 years. Uses insulin pump and Dexcom CGM. Reports seeing trina Guevara 02/2022. States today's visit he would like to focus mostly on carb counting for home recipes. Also has concerns about lows after mowing his lawn (push mower for 3-4 hours). Usually feels a low two hours after lunch when carbs are likely digested: deli ham sandwich and chips with apple. During mowing he reduces his basal rate. doses bolus 7-8 units for this meal of 69g CHO (I:C 1:8or 9). Endorses clearing his throat a lot at dinner. Plans to attend the next swallow screen community IH class. Diet Recall: 8a: oatmeal, eggs, toast, OJ 12p: sandwich, chips, fruit 7p: turkey or steak, carb x 1/2-1c, veggies Anthropometrics: Ht: 69 Wt: 157# Physical Activity: 5-7 days: Mowing, yard work, resistance training Self-Monitoring Blood Glucose: Reports most FBG 80-120. Highest BG reported 200mg/dL. Does not have the Gen One Cig ronny. Diabetes Medications: Lispro pump Pertinent Labs: Reports last HgA1c 02/2022 at 6.8% Past Medical History: (Last Reviewed 05/25/22 @ 11:21 by Inge Lucero MD) Diabetes Obstructive sleep apnea (adult) (pediatric) Prostate cancer Nutrition Rx: Carbohydrates: Meal:45-60g Snack: 15-30g Nutrition Diagnosis: - Nutrition and food related knowledge deficit r/t needing more info on carbs in recipes aeb pt report Intervention: This participant was very receptive. Provided appropriate educational handouts. Discussed the following topics: Completed intake assessment. Discussed barriers to care. Reviewed carb counting resources online and apps Discussed excel sheet for recipes Practiced some carb counting for recipes Brainstormed ways to reduce lows after lunch, potential for reduced bolus when mowing. Created SMART goals for patient self-care and success. Goals: Try myfitness pal and food data central cont reduced basal during mowing but consider reduced bolus prn Consider clarity ronny to share reports Follow-up: RDN [facility] follow-up in 4 weeks Ciara Beach RDN, [facility] Certified Diabetes Care and Director Of Purchasing P: [phone] Thank you for this referral
== END ==
PROVIDERS: Family Provider Student in an Organized Health Care Education/Training Program; PCP Student in an Organized Health Care Education/Training Program; Referring Provider Student in an Organized Health Care Education/Training Program; Visit Provider Student in an Organized Health Care Education/Training Program
DX: E10.9 Type 1 diabetes mellitus without complications (principal); Z96.41 Presence of insulin pump (external) (internal); Z71.3 Dietary counseling and surveillance
CPT/HCPCS: 97802

== ENCOUNTER → 2022-07-24 12:03 | Outpatient (CLI) | payer MEDICARE, SELFPAY ==
--- NOTE | 2022-07-31 16:50 | DIAB.MNTFU ---
Follow-up Diabetes Medical Nutrition Therapy Assessment Name: Niko Gomes Date: 07/24/22 Time: 1-2p Dx: Type I Diabetes Provider: Bruna Pope presents for follow-up regarding T1Dm. Reports reduced low bg with reduction in bolus before activity. Also states he is still trying to set up a system for tracking recipes and carb content. Difficulty with downloading appropriate apps for excel and finding food nutrition database. Also reports frustration with current diabetes supplier, which is a delivery service [place]. Will often run out of pump and CGM supplies before next month's supplies arrive. Needs to approve monthly. Will use meter and manual insulin injections prn when this occurs. Reports a pretty balanced day with nutrition. Does have questions regarding eggs vs egg beaters and cholesterol. Anthropometrics: Ht: 69 Wt: 157# Physical Activity: 5-7 days: Mowing, yard work, resistance training Self-Monitoring Blood Glucose: No clarity ronny still. Reports BG overall better. Less lows and few elevations. Most days BG <180 mg/dL. Today pre lunch reading was 108 mg/dL. Diabetes Medications: Lispro (Medtronic pump) Pertinent Labs: Reports last HgA1c 02/2022 at 6.8% Past Medical History: (Last Reviewed 05/25/22 @ 11:21 by Inge Lucero MD) Diabetes Obstructive sleep apnea (adult) (pediatric) Prostate cancer Nutrition Rx: Carbohydrates: Meal:45-60g Snack: 15-30g Nutrition Diagnosis: - Nutrition and food related knowledge deficit r/t needing more info on carbs in recipes aeb pt report Intervention: This participant was very receptive. Provided appropriate educational handouts. Discussed the following topics: Blood sugar review and trends. Impact of food and insulin dose on lows and elevations Heart health nutrition: fats, vs dietary cholesterol and egg nutrition Food tracking ronny resources and online databases-- sent him the website for [employer] food database Troubleshooting diabetes supply services and options- will send more resources after contacting CGM and pump reps Created SMART goals for patient self-care and success. Goals: Try myfitness pal and food data central- in progress cont reduced basal during mowing but consider reduced bolus prn- met Consider clarity ronny to share reports - in progress Follow-up: BHARAT EDWARDS follow-up prn. Will message Niko with additional info regarding diabetes supplies. Ciara Beach RDN, [facility] Certified Diabetes Care and Airplane Rental Clerk P: [phone] Thank you for this referral
== END ==
PROVIDERS: Family Provider Student in an Organized Health Care Education/Training Program; PCP Student in an Organized Health Care Education/Training Program; Referring Provider Student in an Organized Health Care Education/Training Program; Visit Provider Student in an Organized Health Care Education/Training Program
DX: E10.9 Type 1 diabetes mellitus without complications (principal); Z96.41 Presence of insulin pump (external) (internal); Z71.3 Dietary counseling and surveillance
CPT/HCPCS: 97803

== ENCOUNTER → 2025-05-26 11:14 | Outpatient (CLI) | payer MEDICARE, SELFPAY ==
[2025-05-26 12:55] LABS: Prostate Specific Antigen < 0.064 ng/mL (0.10-4.00)
== END ==
PROVIDERS: PCP Family Medicine; Referring Provider Urology; Visit Provider Urology
DX: C61 Malignant neoplasm of prostate (principal); N52.39 Other and unspecified postprocedural erectile dysfunction; N52.31 Erectile dysfunction following radical prostatectomy; R39.9 Unspecified symptoms and signs involving the genitourinary system
CPT/HCPCS: 36415; 51798; 81002; 84153; 99214